=== PATIENT | male | born 1975 | race American Indian/Alaskan Native ===

== ENCOUNTER 2016-10-10 14:02 | Emergency (ER) | payer SELFPAY ==
[2016-10-10] MEDS ORDERED: Gabapentin 100 MG Cap ONE ×2 (14:45→14:46)
[2016-10-10] MEDS ORDERED: cloNIDine 0.1 MG Tab ONE (14:47)
[2016-10-10] MEDS ORDERED: cloNIDine 0.1 MG Tab PO ONE (14:52)
--- NOTE | 2016-10-10 14:52 | EDM.PDOC ---
ED HPI GENERAL MEDICAL PROBLEM - General Chief Complaint: General Stated Complaint: EAR PAIN Time Seen by Provider: 10/10/16 14:20 Source of Information: Reports: Patient History Limitations: Reports: No limitations - History of Present Illness INITIAL COMMENTS - FREE TEXT/NARRATIVE: According to patient he has been having pain in his right ear since May of 2016. He claims pain is constant and gets worse at time, most of the pain is behind the right ear and radiates into the right frontal and parietal region of the face and scalp. Hurts for him to comb his hair. No lesion and rash in the face or scalp. Pt claims that he has been to [place] emergency room twice. he was initially treated with amox for ear infection and then 5 days ago was started on clindamycin which he has been taking,pain is not better. no nausea or vomiting. No fever or chills. no hearing loss. No trauma to the ear. Improves with: Reports: None Worsens with: Reports: None Associated Symptoms: Denies: confusion, cough, fever/chills, headaches, nausea/ vomiting, rash, seizure, shortness of breath - Related Data Allergies Allergy/AdvReac Type Severity Reaction Status Date / Time No Known Allergies Allergy Verified 10/10/16 14:32 Home Meds: Home Meds Lisinopril/Hydrochlorothiazide [Lisinopril-Hctz 10-12.5 mg Tab] 1 each PO DAILY 10/10/16 [History] Pantoprazole [Protonix] 40 mg PO ACBREAKFAST 10/10/16 [History] Social & Family History - Tobacco Use Smoking Status *Q: Current Some Day Smoker Years of Tobacco use: 20 Used Tobacco, but Quit: No Second Hand Smoke Exposure: Yes - Alcohol Use Days Per Week of Alcohol Use: 1 Number of Drinks Per Day: 12 Total Drinks Per Week: 12 - Recreational Drug Use Recreational Drug Use: No ED ROS GENERAL - Review of Systems Review Of Systems: See Below Constitutional: Denies: fever, chills, night sweats, diaphoresis HEENT: Denies: Rhinitis, Sinus problem, Throat swelling Respiratory: Denies: Shortness of Breath, Cough, Sputum, Hemoptysis Cardiovascular: Denies: Chest pain, Lightheadedness GI/Abdominal: Denies: Abdominal pain, Nausea, Vomiting : Denies: dysuria, flank pain, incontinence, urgency Musculoskeletal: Denies: neck pain, shoulder pain, joint pain, joint swelling Skin: Denies: pruritis, rash Neurological: Denies: Confusion, Dizziness, Headache, Numbness, Paresthesia, Seizure, Syncope, Tingling, Trouble Speaking, Difficulty Walking, Change in Speech, Gait Disturbance ED EXAM, GENERAL - Physical Exam Exam: See Below Exam Limited By: No limitations General Appearance: alert, WD/WN, mild distress Eye Exam: bilateral eye: EOMI, PERRL Ears: normal external exam, normal canal, hearing grossly normal, normal TMs Ear Exam: bilateral ear: auricle normal, canal normal, TM normal Nose: normal inspection, normal mucosa, no blood Throat/Mouth: Normal inspection, Normal lips, Normal teeth, Normal gums, Normal oropharynx, Normal voice, No airway compromise Head: atraumatic, normocephalic, other (sensitive to touch in the post auricular region and over the right frontal parietal region to touch.) Neck: normal inspection, supple, non-tender, full range of motion Respiratory/Chest: no respiratory distress, lungs clear, normal breath sounds, no accessory muscle use, chest non-tender Cardiovascular: normal peripheral pulses, regular rate, rhythm, no edema, no gallop, no JVD, no murmur, no rub Extremities: normal inspection, normal range of motion, non-tender, normal capillary refill, no pedal edema Neurological: alert, oriented, CN II-XII intact, normal cognition, normal gait, normal reflexes, other (paresthesia in the rigth frontal parietal region) Course - Vital Signs Text/Narrative:: Pt reassured that his ear exam is normal. He has been ahving pain in the left side of the head involving the ear region since May of 2016. He is sensitive to touch in the area. he cannot comb his hair in the same region. This does appear like trigeminal neuralgia. I have started patient on Gabapentin 100mg 3 times daily. also side effects have been discussed with patient including dizziness. Will have MRI of the brain scheduled for further workup. Education on trigeminal neuralgia given to patient. also patient claims that he has not taken his BP meds today. he takes lisinopril and HCTZ. As his systolic is 180mmhg, he did receive clonidine 0.1mg in the emergency room and his BP improved. Departure - Departure Time of Disposition: 14:50 Disposition: Home, Self-Care 01 Condition: fair Clinical Impression: Trigeminal neuralgia of right side of face Instructions: Trigeminal Neuralgia Referrals: PCP,None [Primary Care Provider] - Forms: ED Department Discharge - Problem List & Annotations (1) Trigeminal neuralgia of right side of face SNOMED Code(s): 69678764 Code(s): G50.0 - TRIGEMINAL NEURALGIA Status: Acute Current Visit: Yes - Problem List Review Problem List Initiated/Reviewed/Updated: Yes - Assessment/Plan Assessment:: Right trigeminal neuralgia Plan: Pt reassured that his ear exam is normal. He has been ahving pain in the left side of the head involving the ear region since May of 2016. He is sensitive to touch in the area. he cannot comb his hair in the same region. This does appear like trigeminal neuralgia. I have started patient on Gabapentin 100mg 3 times daily. also side effects have been discussed with patient including dizziness. Will have MRI of the brain scheduled for further workup. Education on trigeminal neuralgia given to patient. also patient claims that he has not taken his BP meds today. he takes lisinopril and HCTZ. As his systolic is 180mmhg, he did receive clonidine 0.1mg in the emergency room and his BP improved.
[2016-10-10 15:29] VITALS: BP 144/98
== END 2016-10-10 15:00 | disposition home or self-care (01) ==
LOC: LB.ED 14:02
DX: G50.0 Trigeminal neuralgia (principal)
CPT/HCPCS: 99282; 99283; A9270

== ENCOUNTER 2017-05-04 07:25 | Emergency (ER) | payer SELFPAY ==
[2017-05-04 07:38] VITALS: BP 134/95
[2017-05-04] MEDS ORDERED: Ketorolac 30 MG/ML SDV IM ONE (08:13)
[2017-05-04] MEDS ORDERED: Gabapentin 300 MG Cap PO ONE (08:18)
[2017-05-04] MEDS ORDERED: Ketorolac 30 MG/ML SDV ONE (08:19)
--- NOTE | 2017-05-04 11:07 | EDM.PDOC ---
ED HPI GENERAL MEDICAL PROBLEM - General Chief Complaint: General Stated Complaint: dizziness Time Seen by Provider: 05/04/17 08:05 Source of Information: Reports: Patient History Limitations: Reports: No Limitations - History of Present Illness INITIAL COMMENTS - FREE TEXT/NARRATIVE: Pt is here in the emergency room for his headache. He claims that he has had this headache for past 2 days. His description is severe sharp headache ache over the right side of the face and scalp all the way to the vertex. Comes and goes. He gets atleast one episodes every week and is asso with tearing of the right eye. Gets right ear pain too, but does not have ringing in the ears or tinnitus. Onset Date: 05/02/17 Location: Reports: Head Quality: Reports: Ache Severity: Moderate Improves with: Reports: None Worsens with: Reports: None Associated Symptoms: Reports: Headaches. Denies: Chest Pain, Cough, Fever/ Chills, Nausea/Vomiting, Rash, Seizure, Shortness of Breath, Syncope, Weakness right ear and headache Pain Score (Numeric/FACES): 6 - Related Data Allergies Allergy/AdvReac Type Severity Reaction Status Date / Time No Known Allergies Allergy Verified 05/04/17 07:38 Home Meds: Home Meds Lisinopril/Hydrochlorothiazide [Lisinopril-Hctz 10-12.5 mg Tab] 1 each PO DAILY 10/10/16 [History] Pantoprazole [Protonix] 40 mg PO ACBREAKFAST 10/10/16 [History] oxyCODONE 5 mg PO BID 05/04/17 [History] Past Medical History Cardiovascular History: Reports: Hypertension Gastrointestinal History: Reports: GERD, Other (See Below) Other Gastrointestinal History: ulcers Social & Family History - Tobacco Use Smoking Status *Q: Current Some Day Smoker Years of Tobacco use: 20 Used Tobacco, but Quit: No Second Hand Smoke Exposure: Yes - Alcohol Use Days Per Week of Alcohol Use: 1 Number of Drinks Per Day: 12 Total Drinks Per Week: 12 - Recreational Drug Use Recreational Drug Use: No ED ROS GENERAL - Review of Systems Review Of Systems: See Below Constitutional: Denies: Fever, Chills HEENT: Reports: Ear Pain (right), Other (right eye tearing). Denies: Eye Pain, Throat Pain, Throat Swelling, Vision Change Respiratory: Denies: Shortness of Breath, Cough, Sputum Cardiovascular: Denies: Chest Pain, Edema, Lightheadedness GI/Abdominal: Denies: Abdominal Pain, Nausea, Vomiting Neurological: Denies: Confusion, Dizziness, Numbness, Paresthesia, Syncope, Tingling, Trouble Speaking, Difficulty Walking ED EXAM, GENERAL - Physical Exam Exam: See Below Exam Limited By: No Limitations General Appearance: Alert, WD/WN, No Apparent Distress Ears: Normal External Exam, Normal Canal, Hearing Grossly Normal, Normal TMs Ear Exam: Bilateral Ear: Auricle Normal, Canal Normal, TM normal Nose: Normal Inspection, Normal Mucosa, No Blood Throat/Mouth: Normal Inspection, Normal Lips, Normal Teeth, Normal Gums, Normal Oropharynx, Normal Voice, No Airway Compromise Head: Atraumatic, Normocephalic Neck: Normal Inspection, Supple, Non-Tender, Full Range of Motion Respiratory/Chest: No Respiratory Distress Cardiovascular: Normal Peripheral Pulses, Regular Rate, Rhythm, No Edema, No Gallop, No JVD, No Murmur, No Rub Neurological: Alert, Oriented, CN II-XII Intact, Normal Cognition, Normal Gait, Normal Reflexes, No Motor/Sensory Deficits Psychiatric: Normal Affect, Normal Mood Skin Exam: Warm, Intact Course - Vital Signs Text/Narrative:: Pt does appear to have right sided trigeminal neuralgia symptoms or could be cluster headache type pain, he was seen for the same reason few months ago. Advised MRI of the brain and started on gabapentin. Pt stopped gabapentin after few days, and has not got MRI of the brain done. I have reassured. His clinical exam is normal. HE did receive toradol 30mg IM, and gabapentn 300mg orally in the emergency room. Have advised him to take gabapentin 300mg at bedtime regularly. His CBC shows mild elevation of WBC today at 14.9, have empirically covered with amox for 10 days. Needs to see primary care in clinic and have appointment scheduled for neurology evaluation. Pt agrees and understand the plan. Last Recorded V/S: Last Vital Signs Temp 97.6 F 05/04/17 07:34 Pulse 93 05/04/17 07:34 Resp 16 05/04/17 07:34 BP 134/95 H 05/04/17 07:34 Pulse Ox 99 05/04/17 07:34 - Orders/Labs/Meds Labs: Laboratory Tests 05/04/17 Range/Units 07:55 WBC 14.9 H (4.0-11.0) K/uL RBC 4.92 (4.50-6.50) M/uL Hgb 15.0 (13.0-18.0) g/dL Hct 44.7 (40.0-54.0) % MCV 91 (76-96) fL MCH 30.5 (27.0-32.0) pg MCHC 33.6 (31.0-35.0) g/dL RDW 13.5 (11.0-16.0) % Plt Count 295 (150-400) K/uL MPV 8.5 (6.0-10.0) fL Neut % (Auto) 72.8 H (45.0-70.0) % Lymph % (Auto) 17.1 L (20.0-40.0) % [place] % (Auto) 6.6 (3.0-10.0) % Eos % (Auto) 3.3 (1.0-5.0) % Baso % (Auto) 0.2 (0.0-0.5) % Neut # (Auto) 10.84 H (2.00-7.50) K/uL Lymph # (Auto) 2.55 (1.50-4.00) K/uL [place] # (Auto) 0.99 H (0.20-0.80) K/uL Eos # (Auto) 0.49 H (0.04-0.40) K/uL Baso # (Auto) 0.03 (0.02-0.10) K/uL Meds: Medications Discontinued Medications Generic Name Dose Route Start Last Admin Trade Name Anibal PRN Reason Stop Dose Admin Gabapentin 300 mg 05/04/17 08:18 05/04/17 08:20 Neurontin PO 05/04/17 08:19 300 mg ONETIME ONE Administration Ketorolac Tromethamine 30 mg 05/04/17 08:13 05/04/17 08:20 Toradol IM 05/04/17 08:14 30 mg ONETIME ONE Administration Ketorolac Tromethamine Confirm 05/04/17 08:19 Toradol Administered 05/04/17 08:20 Dose 30 mg .ROUTE .STK-MED ONE Departure - Departure Time of Disposition: 09:00 Disposition: Home, Self-Care 01 Condition: Fair Clinical Impression: Trigeminal neuralgia of right side of face - Discharge Information Instructions: Trigeminal Neuralgia Referrals: PCP,Unknown [Ordering Only Provider] - Forms: ED Department Discharge Additional Instructions: Gabapentin every night, you need to try this for the next month to see any improvements, then you need to follow up in the clinic to get a referral.. Your are also given an antibiotic for the next 10 days. - Problem List & Annotations (1) Trigeminal neuralgia of right side of face SNOMED Code(s): 67801640 Code(s): G50.0 - TRIGEMINAL NEURALGIA Status: Acute - Problem List Review Problem List Initiated/Reviewed/Updated: Yes - Assessment/Plan Assessment:: right sided trigeminal neuralgia Plan: Pt does appear to have right sided trigeminal neuralgia symptoms or could be cluster headache type pain, he was seen for the same reason few months ago. Advised MRI of the brain and started on gabapentin. Pt stopped gabapentin after few days, and has not got MRI of the brain done. I have reassured. His clinical exam is normal. HE did receive toradol 30mg IM, and gabapentn 300mg orally in the emergency room. Have advised him to take gabapentin 300mg at bedtime regularly. His CBC shows mild elevation of WBC today at 14.9, have empirically covered with amox for 10 days. Needs to see primary care in clinic and have appointment scheduled for neurology evaluation. Pt agrees and understand the plan.
== END 2017-05-04 08:25 | disposition home or self-care (01) ==
LOC: LB.ED 07:25
DX: G50.0 Trigeminal neuralgia (principal); I10 Essential (primary) hypertension; F17.200 Nicotine dependence, unspecified, uncomplicated
CPT/HCPCS: 36415; 85025; 96372; 99284; A9270; J1885

== ENCOUNTER 2017-05-11 06:30 | Emergency (ER) | payer SELFPAY | END 2017-05-11 06:40 | disposition left against medical advice (07) | LOC: LB.ED 06:30 | DX: Z53.21 Procedure and treatment not carried out due to patient leaving prior to being seen by health care provider (principal) ==

== ENCOUNTER 2017-05-24 09:53 | Emergency (ER) | payer OTHER ==
[2017-05-24] MEDS ORDERED: Amoxicillin/Clavulanate K 875-125 MG Tab ONE (10:00)
[2017-05-24] MEDS ORDERED: Acetaminophen/HYDROcodone 325-5 MG Tab ONE (10:00)
[2017-05-24 11:38] VITALS: BP 135/83
[2017-05-24] MEDS ORDERED: Diphtheria,Pertussis(Acell),Tetanus Vaccine 0.5 ML SDV inactive IM ONE (12:00)
--- NOTE | 2017-05-25 07:08 | EDM.PDOC ---
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 Patient comes in to the ER with packing and the glove with the distal digit in the glove. This happened 15 min prior to arrival in the ER. Patient is not sure of his tetanus status and is otherwise in good health. Onset: Sudden Duration: Minutes: Location: Reports: Upper Extremity, Left Left 4-Ring finger Pain Score (Numeric/FACES): 7 - Related Data Allergies Allergy/AdvReac Type Severity Reaction Status Date / Time No Known Allergies Allergy Verified 05/04/17 07:38 Home Meds: Home Meds Lisinopril/Hydrochlorothiazide [Lisinopril-Hctz 10-12.5 mg Tab] 1 each PO DAILY 10/10/16 [History] Pantoprazole [Protonix] 40 mg PO ACBREAKFAST 10/10/16 [History] oxyCODONE 5 mg PO BID 05/04/17 [History] Past Medical History Cardiovascular History: Reports: Hypertension Other Cardiovascular History: has been on HTN meds but stopped taking meds states he has lost 40 pounds and hasn't had to take meds anymore Gastrointestinal History: Reports: GERD, Other (See Below) Other Gastrointestinal History: ulcers Social & Family History - Tobacco Use Smoking Status *Q: Current Some Day Smoker Years of Tobacco use: 20 Used Tobacco, but Quit: No Second Hand Smoke Exposure: Yes - Alcohol Use Days Per Week of Alcohol Use: 1 Number of Drinks Per Day: 12 Total Drinks Per Week: 12 - Recreational Drug Use Recreational Drug Use: No Review of Systems - Review of Systems Review Of Systems: ROS reveals no pertinent complaints other than HPI. ED EXAM, GENERAL - Physical Exam Exam: See Below Exam Limited By: No Limitations Respiratory/Chest: No Respiratory Distress Cardiovascular: Normal Peripheral Pulses, Regular Rate, Rhythm Extremities: Other (left 4th distal digit fingertip avulsion) ED TRAUMA PROCEDURES - Laceration/Wound Repair Left Distal Finger Appearance: Subcutaneous Distal NVT: Neuro & Vascular Intact, No Tendon Injury Anesthetic Type: Local Local Anesthesia - Lidocaine (Xylocaine): 1% Plain Local Anesthetic Volume: 5cc Skin Prep: Saline, Sterile Drape Exploration/Debridement/Repair: Wound Explored Closed With: Sutures Suture Size: 4-0 # of Sutures: 9 Suture Type: Interrupted, Simple Tetanus Status Addressed: Yes Complications: No Course - Vital Signs Last Recorded V/S: Last Vital Signs Temp 36.7 C 05/24/17 10:15 Pulse 74 05/24/17 10:15 Resp 16 05/24/17 10:15 BP 135/83 05/24/17 10:15 Pulse Ox 100 05/24/17 10:15 - Orders/Labs/Meds Orders: Active Orders 24 hr Category Date Time Status Vaccines to be Administered [RC] PER UNIT ROUTINE Care 05/24/17 12:00 Active Meds: Medications Discontinued Medications Generic Name Dose Route Start Last Admin Trade Name Freq PRN Reason Stop Dose Admin Diphtheria/Tetanus/Acell Pertussis 0.5 ml 05/24/17 12:00 05/24/17 11:10 Boostrix IM 05/24/17 12:01 0.5 ml .ONCE ONE Administration Departure - Departure Time of Disposition: 11:30 Disposition: Home, Self-Care 01 Condition: Undetermined Clinical Impression: Fingertip avulsion Qualifiers: Encounter type: initial encounter Qualified Code(s): S61.209A - Unspecified open wound of unspecified finger without damage to nail, initial encounter - Discharge Information Instructions: Traumatic Finger Amputation Referrals: PCP,None [Primary Care Provider] - Forms: ED Department Discharge Care Plan Goals: Return to clinic in 7 to 10 days for suture removal. Watch for signs of infection. Take pain medication as needed for pain. Take antibiotic as prescribed. Counseled on the nature of the wound and the likelihood of loss of the fingertip. Discussed possibility of infection and bone infection due to exposure of the distal tip of the fingertip bone. Counseled on infection close monitoring and f/u for suture removal and wound check and healing. Discussed proper care and keeping wound side dry and clean with dressing changes. Discussed f/u if any concerns or issues. - My Orders Last 24 Hours: My Active Orders 05/24/17 12:00 Vaccines to be Administered [RC] PER UNIT ROUTINE - Assessment/Plan Last 24 Hours: My Active Orders 05/24/17 12:00 Vaccines to be Administered [RC] PER UNIT ROUTINE
== END 2017-05-24 11:15 | disposition home or self-care (01) ==
LOC: LB.ED 09:53
DX: S61.205A Unspecified open wound of left ring finger without damage to nail, initial encounter (principal); Z23 Encounter for immunization; F17.210 Nicotine dependence, cigarettes, uncomplicated; W31.1XXA Contact with metalworking machines, initial encounter
CPT/HCPCS: 12002; 90471; 90715; 99283; A9270

== ENCOUNTER 2017-07-16 16:26 | Emergency (ER) | payer OTHER, MEDICAID ==
[2017-07-16] MEDS ORDERED: Acetaminophen/HYDROcodone 325-5 MG Tab ONE (16:30)
--- NOTE | 2017-07-16 17:01 | EDM.PDOC ---
ED HPI GENERAL MEDICAL PROBLEM - General Chief Complaint: General Stated Complaint: hand pain Time Seen by Provider: 07/16/17 16:45 Source of Information: Reports: Patient History Limitations: Reports: No Limitations - History of Present Illness INITIAL COMMENTS - FREE TEXT/NARRATIVE: This is a 42yo M here for left ring finger distal tip pain. The pain has been sharp 10/10 tenderness on touch and use. The symptoms have worsened recently. He has seen Dr. Mayer and has a f/u on Aug 11. Duration: Waxing/Waning Location: Reports: Upper Extremity, Left Quality: Reports: Ache, Stabbing Severity: Severe Improves with: Reports: Medication Worsens with: Reports: Movement - Related Data Allergies Allergy/AdvReac Type Severity Reaction Status Date / Time No Known Allergies Allergy Verified 05/04/17 07:38 Home Meds: Home Meds Lisinopril/Hydrochlorothiazide [Lisinopril-Hctz 10-12.5 mg Tab] 1 each PO DAILY 10/10/16 [History] Pantoprazole [Protonix] 40 mg PO ACBREAKFAST 10/10/16 [History] oxyCODONE 5 mg PO BID 05/04/17 [History] Past Medical History Cardiovascular History: Reports: Hypertension Other Cardiovascular History: has been on HTN meds but stopped taking meds states he has lost 40 pounds and hasn't had to take meds anymore Gastrointestinal History: Reports: GERD, Other (See Below) Other Gastrointestinal History: ulcers Other Musculoskeletal History: Bilateral shoulder pain Social & Family History - Tobacco Use Smoking Status *Q: Current Some Day Smoker Years of Tobacco use: 20 Used Tobacco, but Quit: No Second Hand Smoke Exposure: Yes - Alcohol Use Days Per Week of Alcohol Use: 1 Number of Drinks Per Day: 12 Total Drinks Per Week: 12 - Recreational Drug Use Recreational Drug Use: No ED ROS GENERAL - Review of Systems Review Of Systems: ROS reveals no pertinent complaints other than HPI. ED EXAM, GENERAL - Physical Exam Exam: See Below Exam Limited By: No Limitations General Appearance: Alert, WD/WN, Moderate Distress Respiratory/Chest: No Respiratory Distress Cardiovascular: Normal Peripheral Pulses Extremities: Other (left ring finger tip amputated area pain; no erythema, no discharge, no dehiscence. ) Psychiatric: Normal Affect, Normal Mood Departure - Departure Time of Disposition: 16:59 Disposition: Home, Self-Care 01 Condition: Good Clinical Impression: Pain Fingertip avulsion Qualifiers: Encounter type: initial encounter Qualified Code(s): S61.209A - Unspecified open wound of unspecified finger without damage to nail, initial encounter - Discharge Information Instructions: Living With an Amputation Forms: ED Department Discharge Additional Instructions: Take 1 tab of hydrocodone/apap 5/325 mg every 6 to 8 hours as needed for pain. Care Plan Goals: Counseled on close monitoring and f/u as needed if any changes to symptoms or persistence of symptoms.
[2017-07-16 18:30] VITALS: BP 113/72
== END 2017-07-16 16:55 | disposition home or self-care (01) ==
LOC: LB.ED 16:26
DX: S61.205A Unspecified open wound of left ring finger without damage to nail, initial encounter (principal); I10 Essential (primary) hypertension; F17.210 Nicotine dependence, cigarettes, uncomplicated; Z79.899 Other long term (current) drug therapy; X58.XXXA Exposure to other specified factors, initial encounter
CPT/HCPCS: 99283; A9270

== ENCOUNTER 2017-08-08 18:50 | Emergency (ER) | payer MEDICAID ==
[2017-08-08] MEDS ORDERED: Sulfamethoxazole/Trimethoprim 200-40 MG/5 ML Susp ML (473 ML Bottle) ONE (19:00)
[2017-08-08 19:12] VITALS: BP 136/84
--- NOTE | 2017-08-08 19:48 | EDM.PDOC ---
ED HPI GENERAL MEDICAL PROBLEM - General Chief Complaint: General Stated Complaint: COLD SYMPTOMS Time Seen by Provider: 08/08/17 19:15 Source of Information: Reports: Patient, RN History Limitations: Reports: No Limitations - History of Present Illness INITIAL COMMENTS - FREE TEXT/NARRATIVE: 42 yr male presents with right sided sinus pain, states sore inside nose and pain up to top of scalp with this. States he has a MRI scheduled for neuralgia work-up. States he started to get sick on the weekend and is worse today. States no allergies. He does have a bandage to finger of left hand and states he had a laceration and fingertip cut off. - Related Data Allergies Allergy/AdvReac Type Severity Reaction Status Date / Time No Known Allergies Allergy Verified 05/04/17 07:38 Home Meds: Home Meds Lisinopril/Hydrochlorothiazide [Lisinopril-Hctz 10-12.5 mg Tab] 1 each PO DAILY 10/10/16 [History] Pantoprazole [Protonix] 40 mg PO ACBREAKFAST 10/10/16 [History] oxyCODONE 5 mg PO BID 05/04/17 [History] Past Medical History Cardiovascular History: Reports: Hypertension Other Cardiovascular History: has been on HTN meds but stopped taking meds states he has lost 40 pounds and hasn't had to take meds anymore Gastrointestinal History: Reports: GERD, Other (See Below) Other Gastrointestinal History: ulcers Other Musculoskeletal History: Bilateral shoulder pain Social & Family History - Tobacco Use Smoking Status *Q: Current Every Day Smoker Years of Tobacco use: 20 Used Tobacco, but Quit: No Second Hand Smoke Exposure: Yes - Alcohol Use Days Per Week of Alcohol Use: 1 Number of Drinks Per Day: 12 Total Drinks Per Week: 12 - Recreational Drug Use Recreational Drug Use: No ED ROS GENERAL - Review of Systems Review Of Systems: See Below Constitutional: Reports: No Symptoms HEENT: Reports: Dental Pain, Nose Pain, Throat Pain, Other (sinus pain) Respiratory: Reports: Cough Cardiovascular: Reports: No Symptoms Endocrine: Reports: No Symptoms GI/Abdominal: Reports: No Symptoms Psychiatric: Reports: No Symptoms ED EXAM, GENERAL - Physical Exam Exam: See Below Exam Limited By: No Limitations General Appearance: Alert, No Apparent Distress Ears: Hearing Grossly Normal Nose: Normal Inspection, Normal Mucosa, Nasal Swelling Throat/Mouth: Normal Inspection, Normal Lips Head: Atraumatic, Normocephalic, Sinus Tenderness, Other (Maxillary sinus tenderness to the right side and frontal sinus tenderness) Neck: Normal Inspection, Supple, Non-Tender Respiratory/Chest: No Respiratory Distress, Lungs Clear, Normal Breath Sounds Cardiovascular: Regular Rate, Rhythm Psychiatric: Normal Affect, Normal Mood Skin Exam: Warm, Dry, Normal Color Lymphatic: Other (anterior cervical lymph adenopathy, states he had an U/S to his neck, lymph adenopathy) Course - Vital Signs Last Recorded V/S: Last Vital Signs Temp 99.8 F 08/08/17 19:33 Pulse 113 H 08/08/17 19:33 Resp 16 08/08/17 19:33 BP 136/84 08/08/17 19:33 Pulse Ox 100 08/08/17 19:33 Departure - Departure Time of Disposition: 19:25 Disposition: Home, Self-Care 01 Condition: Good Clinical Impression: Sinusitis - Discharge Information Instructions: Sinusitis, Adult, [id number] Referrals: PCP,None [Primary Care Provider] - Forms: ED Department Discharge Care Plan Goals: Take antibiotic as directed. May use vaseline in right nares to keep moist. May use a vaporizer at home if needed. Return to hospital or clinic with any other concerns or problems. - Problem List & Annotations (1) Sinusitis SNOMED Code(s): 67688525 Code(s): J32.9 - CHRONIC SINUSITIS, UNSPECIFIED Status: Acute - Problem List Review Problem List Initiated/Reviewed/Updated: Yes - Assessment/Plan Plan: RX for Bactrim DS 1 tab PO bid for 10 day. Recommend to take with full glass of water and food. May take Tylenol as needed for pain and temperature. Recommend Vicks Vapor inhalation a few times/day for relief of congestion and moisture to prevent nose bleeds. Mupirocin oint application to right nares, states sore inside nostril. RTC if symptoms persist or worsen.
== END 2017-08-08 19:25 | disposition home or self-care (01) ==
LOC: LB.ED 18:50
DX: J32.9 Chronic sinusitis, unspecified (principal); I10 Essential (primary) hypertension; F17.210 Nicotine dependence, cigarettes, uncomplicated
CPT/HCPCS: 99283; A9270

== ENCOUNTER 2017-08-13 17:05 | Emergency (ER) | payer MEDICAID ==
[2017-08-13] MEDS ORDERED: predniSONE 20 MG Tab ONE ×2 (17:29→19:20)
[2017-08-13 18:04] VITALS: BP 123/87
--- NOTE | 2017-08-13 19:00 | EDM.PDOC ---
ED HPI GENERAL MEDICAL PROBLEM - General Chief Complaint: Respiratory Problem Stated Complaint: NOSE STOPPED UP Time Seen by Provider: 08/13/17 17:15 Source of Information: Reports: Patient History Limitations: Reports: No Limitations - History of Present Illness INITIAL COMMENTS - FREE TEXT/NARRATIVE: Patient is a 42 year old man who has been seen in the ED and clinic this past week for nasal congestion. He has an antibiotic, flonase and he is steaming his nose but he is still having a hard time breathing. No other complaints. 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 Treatments - Related Data Allergies Allergy/AdvReac Type Severity Reaction Status Date / Time No Known Allergies Allergy Verified 05/04/17 07:38 Home Meds: Home Meds Lisinopril/Hydrochlorothiazide [Lisinopril-Hctz 10-12.5 mg Tab] 1 each PO DAILY 10/10/16 [History] Pantoprazole [Protonix] 40 mg PO ACBREAKFAST 10/10/16 [History] oxyCODONE 5 mg PO BID 05/04/17 [History] Past Medical History - Past Health History Medical/Surgical History: Denies Medical/Surgical History Cardiovascular History: Reports: Hypertension Other Cardiovascular History: has been on HTN meds but stopped taking meds states he has lost 40 pounds and hasn't had to take meds anymore Gastrointestinal History: Reports: GERD, Other (See Below) Other Gastrointestinal History: ulcers Other Musculoskeletal History: Bilateral shoulder pain Social & Family History - Tobacco Use Smoking Status *Q: Current Every Day Smoker Years of Tobacco use: 20 Packs/Tins Daily: 1 Used Tobacco, but Quit: No Second Hand Smoke Exposure: Yes - Caffeine Use Caffeine Use: Reports: None - Alcohol Use Days Per Week of Alcohol Use: 1 Number of Drinks Per Day: 12 Total Drinks Per Week: 12 - Recreational Drug Use Recreational Drug Use: No ED ROS GENERAL - Review of Systems Review Of Systems: ROS reveals no pertinent complaints other than HPI. ED EXAM, GENERAL - Physical Exam Exam: See Below Exam Limited By: No Limitations General Appearance: Alert, WD/WN, No Apparent Distress Eye Exam: Bilateral Eye: EOMI, Normal Fundi, Normal Inspection, PERRL Ears: Normal External Exam, Normal Canal, Hearing Grossly Normal, Normal TMs Nose: Nasal Deformity (And nasal obstruction with growths in both nostrils.) Throat/Mouth: Normal Inspection, Normal Lips, Normal Teeth, Normal Gums, Normal Oropharynx, Normal Voice, No Airway Compromise Head: Atraumatic, Normocephalic Neck: Normal Inspection, Supple, Non-Tender, Full Range of Motion Respiratory/Chest: No Respiratory Distress, Lungs Clear, Normal Breath Sounds, No Accessory Muscle Use, Chest Non-Tender Cardiovascular: Normal Peripheral Pulses, Regular Rate, Rhythm, No Edema, No Gallop, No JVD, No Murmur, No Rub GI/Abdominal: Normal Bowel Sounds, Soft, Non-Tender, No Organomegaly, No Distention, No Abnormal Bruit, No Mass Extremities: Normal Inspection, Normal Range of Motion, Non-Tender, Normal Capillary Refill, No Pedal Edema Neurological: Alert, Oriented, CN II-XII Intact, Normal Cognition, Normal Gait, Normal Reflexes, No Motor/Sensory Deficits Psychiatric: Normal Affect, Normal Mood Skin Exam: Warm, Dry, Intact, Normal Color, No Rash Course - Vital Signs Text/Narrative:: Uneventful ED course. Added Prednisone 40 mg po daily for 3 days. Continue with antibiotics and flonase along with steam. See Dr. Kline early next week to be set up for ENT appointment and possible polyps in the nose. Last Recorded V/S: Last Vital Signs Temp 36.6 C 08/13/17 17:10 Pulse 123 H 08/13/17 17:10 Resp 20 08/13/17 17:10 BP 123/87 08/13/17 17:10 Pulse Ox 100 08/13/17 17:10 - Orders/Labs/Meds Meds: Medications Discontinued Medications Generic Name Dose Route Start Last Admin Trade Name Anibal PRN Reason Stop Dose Admin Prednisone Confirm 08/13/17 17:29 Prednisone Administered 08/13/17 17:30 Dose 120 mg .ROUTE .STK-MED ONE Departure - Departure Time of Disposition: 19:02 Disposition: Home, Self-Care 01 Condition: Good Clinical Impression: Obstruction of nose - Discharge Information Instructions: Prednisone tablets Referrals: PCP,None [Primary Care Provider] - Forms: ED Department Discharge Care Plan Goals: Take 2 tablets of prednisone x 3 days. See your primary care provider for a referral to an Eyes Ears Nose and Throat specialist as you have polyps.
== END 2017-08-13 17:30 | disposition home or self-care (01) ==
LOC: LB.ED 17:05
DX: J34.89 Other specified disorders of nose and nasal sinuses (principal); I10 Essential (primary) hypertension; K21.9 Gastro-esophageal reflux disease without esophagitis; F17.210 Nicotine dependence, cigarettes, uncomplicated; Z79.899 Other long term (current) drug therapy
CPT/HCPCS: 99283; A9270

== ENCOUNTER 2017-08-29 17:52 | Emergency (ER) | payer MEDICAID ==
[2017-08-29] MEDS ORDERED: Acetaminophen/HYDROcodone 325-5 MG Tab ONE (18:00)
[2017-08-29 18:26] VITALS: BP 155/101
--- NOTE | 2017-08-29 21:10 | EDM.PDOC ---
ED HPI GENERAL MEDICAL PROBLEM - General Chief Complaint: General Stated Complaint: general Time Seen by Provider: 08/29/17 17:52 Source of Information: Reports: Patient History Limitations: Reports: No Limitations - History of Present Illness INITIAL COMMENTS - FREE TEXT/NARRATIVE: This is a 42yo M with nasal congestion, recent diagnosis of nasal turbinate hypertrophy and discomfort. He comes in for the same condition and would like to see if he can see ENT sooner. Onset: Gradual Duration: Week(s):, Constant Location: Reports: Other (nose) Quality: Reports: Ache Severity: Moderate Improves with: Reports: None Worsens with: Reports: None - Related Data Allergies Allergy/AdvReac Type Severity Reaction Status Date / Time No Known Allergies Allergy Verified 08/29/17 18:12 Home Meds: Home Meds Lisinopril/Hydrochlorothiazide [Lisinopril-Hctz 10-12.5 mg Tab] 1 each PO DAILY 10/10/16 [History] Pantoprazole [Protonix] 40 mg PO ACBREAKFAST 10/10/16 [History] oxyCODONE 5 mg PO BID 05/04/17 [History] Past Medical History - Past Health History Medical/Surgical History: Denies Medical/Surgical History Cardiovascular History: Reports: Hypertension Other Cardiovascular History: has been on HTN meds but stopped taking meds states he has lost 40 pounds and hasn't had to take meds anymore Gastrointestinal History: Reports: GERD, Other (See Below) Other Gastrointestinal History: ulcers Other Musculoskeletal History: Bilateral shoulder pain - Past Surgical History Musculoskeletal Surgical History: Reports: Amputation, Other (See Below) Other Musculoskeletal Surgeries/Procedures:: Left ring finger at DIP. Social & Family History - Tobacco Use Smoking Status *Q: Current Every Day Smoker Years of Tobacco use: 20 Packs/Tins Daily: 1 Used Tobacco, but Quit: No Second Hand Smoke Exposure: Yes - Caffeine Use Caffeine Use: Reports: None - Alcohol Use Days Per Week of Alcohol Use: 1 Number of Drinks Per Day: 12 Total Drinks Per Week: 12 - Recreational Drug Use Recreational Drug Use: No ED ROS GENERAL - Review of Systems Review Of Systems: ROS reveals no pertinent complaints other than HPI. ED EXAM, GENERAL - Physical Exam Exam: See Below Exam Limited By: No Limitations General Appearance: Alert, WD/WN, Mild Distress Eye Exam: Bilateral Eye: EOMI, PERRL Ears: Normal External Exam Nose: Nasal Tenderness, Nasal Swelling Throat/Mouth: Normal Inspection, Normal Oropharynx Head: Atraumatic, Normocephalic Neck: Normal Inspection, Supple, Non-Tender Respiratory/Chest: No Respiratory Distress, Lungs Clear, Normal Breath Sounds Cardiovascular: Normal Peripheral Pulses, Regular Rate, Rhythm Peripheral Pulses: 2+: Dorsalis Pedis (L), Dorsalis Pedis (R) GI/Abdominal: Normal Bowel Sounds Back Exam: Normal Inspection Extremities: Normal Inspection Neurological: Alert, Oriented, CN II-XII Intact Psychiatric: Normal Affect, Normal Mood Skin Exam: Warm, Dry, Intact Course - Vital Signs Last Recorded V/S: Last Vital Signs Temp 36.6 C 08/29/17 18:25 Pulse 72 08/29/17 18:25 Resp 20 08/29/17 18:25 BP 155/101 H 08/29/17 18:25 Pulse Ox 99 08/29/17 18:25 Departure - Departure Time of Disposition: 18:30 Disposition: Home, Self-Care 01 Condition: Good Clinical Impression: Nasal turbinate hypertrophy - Discharge Information Referrals: PCP,None [Primary Care Provider] - Forms: ED Department Discharge - Problem List Review Problem List Initiated/Reviewed/Updated: Yes - Assessment/Plan Plan: Patient counseled on current management. Discussed supportive care and management. Patient has an appointment with ENT but it is on September 26. Patient is on waiting list as well. Patient to f/u in clinic on for recheck and management as needed. F/u as directed and if symptoms worsen.
== END 2017-08-29 18:05 | disposition home or self-care (01) ==
LOC: LB.ED 17:52
DX: J34.3 Hypertrophy of nasal turbinates (principal); I10 Essential (primary) hypertension; Z79.899 Other long term (current) drug therapy; F17.210 Nicotine dependence, cigarettes, uncomplicated
CPT/HCPCS: 99282; 99283; A9270

== ENCOUNTER 2018-01-23 00:35 | Emergency (ER) | payer MEDICAID | END 2018-01-23 00:54 | disposition home or self-care (01) | LOC: LB.ED 00:35 | DX: J30.9 Allergic rhinitis, unspecified (principal); R09.81 Nasal congestion | CPT/HCPCS: 99283 ==

== ENCOUNTER 2018-11-10 21:25 | Emergency (ER) | payer MEDICAID ==
[~2018-11-10 21:25] MED LIST: Metoprolol Tartrate 5 MG/5 ML SDV IVPUSH PRN; Metoprolol Tartrate 5 MG/5 ML SDV ONE
[2018-11-10] MEDS: Morphine 2 MG/ML Syringe IVPUSH PRN ×3 (21:46→23:18)
[2018-11-10] MEDS ORDERED: Nitroglycerin 0.4 MG Tab.SL SL PRN (23:40)
[2018-11-10 23:48] VITALS: BP 155/102
[2018-11-11] MEDS ORDERED: Clopidogrel 75 MG Tab PO ONE (00:07)
[2018-11-11] MEDS ORDERED: Heparin Sodium 5,000 UNITS/0.5 ML Syringe IVPUSH ONE (00:08)
[2018-11-11] MEDS ORDERED: Heparin Sodium/D5W 25,000 UNITS/500 ML BAG IV SCH (00:15)
[2018-11-11] MEDS ORDERED: Nitroglycerin/D5W 25 MG/250 ML BOTTLE IV SCH (00:15)
--- NOTE | 2018-11-13 08:38 | CR ---
Date of Service: 11/10/18 Clinical Data: Chest pain. PA CHEST: The heart size is normal. The lungs are clear. No pneumothorax. No pleural effusions. No evidence of acute intrathoracic disease. [id number] [facility]
--- NOTE | 2018-11-13 08:41 | CT ---
Date of Service: 11/10/18 Clinical Data: Chest pain. ENHANCED CHEST CT: Multislice acquisition through the chest with IV contrast was performed. No priors. There are minimal atelectatic changes in the dependent portion of both lungs. The lungs otherwise clear. No pneumothorax. No pleural effusions. No evidence of PE. No aortic aneurysm or dissection. No hilar or mediastinal adenopathy. The heart size is normal. No coronary artery calcification. No significant pericardial effusion. There is a small hiatal hernia. [id number] [facility]
--- NOTE | 2018-11-13 09:15 | ER ---
DATE OF SERVICE: 11/10/2018 HISTORY: The patient is a 43-year-old [place] male presented to the ER with severe substernal chest pain radiating up into his jaw. The patient did not have shortness of breath. He did, however, have nausea and vomiting. He was not noted to have a fever. On presentation to the ER, he was writhing on the stretcher. His initial blood pressure in the ambulance was 197/131, pulse was 97, respirations 20, and O2 saturation was 98% on room air. The patient had an EKG obtained. The EKG had a wandering baseline, as the patient was having a hard time holding still, but initially it looked like he had some ST depression in the anterior leads of V1 through V3, more on V2 and V3, possibly onto V4 also. However, it was not a good EKG. He did not have any ST-segment elevation. His next blood pressure was better at 150/100 and something. He continued to have chest pain, got some morphine. We also gave him a nitroglycerin. The patient's pain persisted. The nitroglycerin really had no effect, dropped his blood pressure minimally briefly. He did take 3 aspirin on his own prior to arriving in the emergency room. The pain had been going on for about 3 hours. It did not radiate into the arm. He does not have a coronary artery disease history. However, he has a family history of diabetes and coronary artery disease, and his serum was noted to be lipemic by the lab. PHYSICAL EXAMINATION: GENERAL: He is alert, oriented, writhing around in severe pain. He ended up getting about 20 mg of morphine before his pain was under control. We repeated his EKG, which showed normal sinus rhythm with some nonspecific ST abnormalities. HEENT: Unremarkable. NECK: Supple. No nodes. No bruits. LUNGS: Clear. HEART: Regular, sinus rhythm. ABDOMEN: Benign. EXTREMITIES: No clubbing, cyanosis, or edema. He did have somewhat decreased peripheral pulses, however. He did have good capillary refill. Further on in the course, the patient still was having a hard time getting his pain under control despite the morphine, etc. We did give him some Lopressor, but that really did not do much to his blood pressure, ended up obtaining a CT scan. My concern was that the patient could have an aortic dissection. That was ruled out with the contrast CT. I did contact Cardiology prior to doing this and giving him a dye load. We did obtain it, it was negative. I contacted Cardiology again, who agreed to accept the patient. At that time, he was started on nitroglycerin drip at 5 mcg. We also gave him a 5000 unit heparin bolus and put him on heparin at 1000 an hour and gave him 300 mg of Plavix p.o. Dr. Flynn agreed to accept the patient, along with Dr. Rodriguez. The patient was transported by ground ambulance. He did have a white count of 20,000. Also, his hemoglobin and hematocrit were good. Comprehensive metabolic panel was pretty much normal. He did have a mildly elevated glucose of 133. He had an elevated troponin of 0.062 with the upper limit of normal being 0.06 and he had a negative D-dimer at less than 100. MONSE/BERNY /[id number] ACACIA
== END 2018-11-11 01:30 ==
LOC: MERGE 21:25 → LB.ED 21:25
DX: I20.0 Unstable angina (principal)
CPT/HCPCS: 36415; 71045; 71260; 80053; 84484; 85025; 85379; 93005; 96365; 96375; 99285-25; A0425; A0429; A9270-GY; J1644; J1644-GY; J2270; J3490

== ENCOUNTER 2019-05-29 20:12 | Observation (INO) | payer MEDICAID ==
[2019-05-29] MEDS ORDERED: Morphine 2 MG/ML Syringe IVPUSH ONE (20:33)
[2019-05-29] MEDS ORDERED: Ondansetron 4 MG/2 ML SDV IVPUSH ONE (20:33)
[2019-05-29] MEDS ORDERED: HYDROmorphone 2 MG/ML Syringe IVPUSH ONE (20:48)
[2019-05-29] MEDS ORDERED: GI Cocktail Oral Solution 30 ML PO ONE (21:01)
[2019-05-29] MEDS ORDERED: Ondansetron 4 MG/2 ML SDV IVPUSH PRN (22:02)
[2019-05-29] MEDS ORDERED: Gabapentin 600 MG Tab PO SCH (22:15)
[2019-05-29] MEDS ORDERED: GABAPENTIN PO SCH (22:15)
[2019-05-29] MEDS: Sodium Chloride 0.9% 1,000 ML IV SCH (22:15)
--- NOTE | 2019-05-29 22:37 | ER ---
HISTORY OF PRESENT ILLNESS: A 43-year-old male who comes to the ER with complaints of chest pain. He states that it just started an hour before arrival. It comes and goes. He has vomited 4 times before arriving at the ER. The patient states it seems to start in the upper part of the abdomen. He is pointing to the upper left quadrant, and it radiates across the lower chest wall to the right side. The patient has not been running a fever. He states he ate supper a couple of hours before the symptoms developed. He has not been sick lately. The patient denies any problems with diarrhea or shortness of breath. PAST MEDICAL HISTORY: Includes an TX in October which required 2 stents. OBJECTIVE: GENERAL APPEARANCE: The patient is awake and alert. He is uncomfortable. No respiratory distress. He prefers to sit up or stand. Lying down is uncomfortable for him. VITAL SIGNS: Reviewed. Blood pressure 106/72, he is afebrile, O2 sats 100%, respirations 16, pulse 101. HEENT: On physical exam; oral mucous membranes are dry. LUNGS: Clear. There is no CVA tenderness with percussion. CARDIAC: Heart sounds distinct without murmurs. ABDOMEN: There is some discomfort in the upper left quadrant with light palpation. Bowel sounds are hypoactive. SKIN: Warm and dry. INITIAL TREATMENT PLAN: Morphine was given 2 mg IV followed by Zofran 4 mg IV. The patient vomited twice while in the ER and the nausea seemed to resolve. The morphine did not do much for pain control. This was followed by 1 mg of Dilaudid, which did control the patient's pain fairly well. He reports just a dull ache in the affected area at this time. He was then given a GI cocktail. LABS: Done in the ER [place] [address]. Comprehensive metabolic panel shows a potassium of 3.4, calcium 8.4. Troponin level is negative or normal. An EKG shows a normal sinus rhythm. Chest x-ray was done, which is negative. At this point, CTs of the chest and abdomen were obtained showing an ileus with no hardy obstruction. This does fit with the patient's clinical picture. DIAGNOSIS: Ileus. TREATMENT PLAN: The patient will be admitted to the hospital on observation. Bowel rest, IV fluids, Zofran, and possibly a nasogastric tube. He will be reassessed in the morning. CRS/MODL /[id number]
--- NOTE | 2019-05-29 22:46 | ADMIT ---
HISTORY: This is a 43-year-old male who came into the emergency room with epigastric pain that radiated up across the anterior chest wall. It seemed to start in the upper left quadrant of the abdomen and radiate up into the right side of the chest wall. It seemed to be coming in spasms when he arrived at the emergency room and lying down was very uncomfortable for him. Sitting up or standing seem to be more comfortable. The patient stated that it has started about an hour before arrival. He had vomited 4 times before getting here. The patient rates his pain as severe when arriving. PAST MEDICAL HISTORY: Includes an VT in October which required 2 stents. He has history of: 1. Trigeminal neuralgia. 2. Contact dermatitis. 3. Chronic pain, mostly due to a partially amputated finger. OBJECTIVE: GENERAL APPEARANCE: The patient is awake and alert. He is uncomfortable. No respiratory distress. VITAL SIGNS: Reviewed. He is afebrile, pulse is 101, blood pressure 106/72, O2 sats are 100%. ABDOMEN: On physical exam, the patient has tenderness involving the left upper quadrant with light palpation. Bowel sounds are hypoactive. SKIN: Warm and dry. CARDIAC: Heart sounds distinct without murmurs. LUNGS: Clear. HEENT: Oral mucous membranes are slightly dry. INITIAL TREATMENT PLAN: After reviewing the patient's medications, he is on Plavix and takes aspirin. He also took 3 nitroglycerin before coming in tonight and stated that it helped a little bit. He is also on lisinopril hydrochlorothiazide, Coreg and Protonix as well as Lipitor. Initial treatment and IV were started. The patient was given 2 mg of morphine. This was followed with Zofran 4 mg. The patient vomited a couple of times here in the emergency room. He did not get much relief from the morphine. We then gave the patient Dilaudid 1 mg IV. This seemed to settle him down considerably. LAB WORK: In[place] [address], neutrophils are normal. Comprehensive metabolic panel shows a potassium of 3.4, glucose 140. Troponin is normal. Chest x-ray is unremarkable as well. The patient was becoming more comfortable, but stated it still hurt, but it was more of an ache at this point in the emergency room, and a GI cocktail was given. This was followed with a CT of the chest and abdomen, which revealed an ileus with no obvious obstruction which warranted admission for the patient. He will be admitted for bowel rest. He will be given IV fluids, Zofran regularly through the night. A nasogastric tube may be needed but he has not been vomiting now for the last hour or so. We will see how that goes, and we will re-evaluate the patient in the morning. BAM/MODL /[id number]
[2019-05-30] MEDS ORDERED: Ketorolac 30 MG/ML SDV IVPUSH SCH (00:30)
[2019-05-30] MEDS: Sodium Chloride 0.9% 1,000 ML IV SCH (05:42)
[2019-05-30] MEDS ORDERED: Ketorolac 30 MG/ML SDV IVPUSH PRN (06:00)
[2019-05-30] MEDS ORDERED: Non-Formulary Medication 1 Each (Pantoprazole [Protonix***] 40 MG) PO SCH (07:00)
[2019-05-30] MEDS ORDERED: Pantoprazole 40 MG Tab.CR PO SCH (07:00)
[2019-05-30] MEDS ORDERED: CARVEDILOL PO SCH (08:00)
[2019-05-30] MEDS ORDERED: Lisinopril 10 MG Tab PO SCH (08:00)
[2019-05-30] MEDS ORDERED: Hydrochlorothiazide 12.5 MG Cap PO SCH (08:00)
[2019-05-30] MEDS ORDERED: Gabapentin 300 MG Cap PO SCH (08:00)
[2019-05-30] MEDS ORDERED: Carvedilol 3.125 MG Tab PO SCH (08:00)
[2019-05-30] MEDS ORDERED: Clopidogrel 75 MG Tab PO SCH (08:00)
[2019-05-30] MEDS ORDERED: Aspirin 81 MG Tab.EC PO SCH (08:00)
[2019-05-30] MEDS ORDERED: ASPIRIN PO SCH (08:00)
[2019-05-30 08:12] VITALS: BP 107/61; PULSE 64
--- NOTE | 2019-05-30 09:01 | CR ---
Date of Service: 05/29/19 Clinical Data: chest pain AP PORTABLE CHEST: Comparison is made to a prior exam dated 11/10/18. The heart size is normal. The lungs are clear. No pneumothorax. No pleural effusions. No evidence of acute intrathoracic disease. [id number] [facility]
--- NOTE | 2019-05-30 09:11 | CT ---
DATE OF SERVICE: 05/29/19 CLINICAL DATA: lower anterior chest pain. UNENHANCED CHEST CT: Multislice acquisition through the chest without IV contrast was performed. Comparison is made to a prior unenhanced chest CT dated October 2018. The lungs are clear. No pneumothorax. No pleural effusions. The heart size is normal. There are mild coronary artery calcifications. No significant pericardial effusion. No hilar or mediastinal adenopathy. The exam is otherwise unremarkable. IMPRESSION: No acute abnormalities. Other findings as discussed above. [id number] [facility]
--- NOTE | 2019-05-30 09:12 | PCM.DCSUM1 ---
Discharge Summary - Discharge Data Discharge Date: 05/30/19 Discharge Disposition: Home, Self-Care 01 Condition: Good - Referral to Home Health Primary Care Physician: Sebas Peterson PA-C - Patient Instructions Diet: Usual Diet as Tolerated Activity: As Tolerated, Rest and Relax Today Driving: May Drive Today - Discharge Plan Home Medications: Home Meds Lisinopril/Hydrochlorothiazide [Lisinopril-Hctz 10-12.5 mg Tab] 1 each PO DAILY 10/10/16 [History] Pantoprazole [Protonix] 40 mg PO ACBREAKFAST 10/10/16 [History] Aspirin 1 tab PO DAILY 05/29/19 [History] Carvedilol 1 tab PO BID 05/29/19 [History] Clopidogrel Bisulfate [Clopidogrel] 1 tab PO DAILY 05/29/19 [History] Gabapentin [Neurontin] 1 cap PO ASDIRECTED 05/29/19 [History] atorvaSTATin Calcium [Atorvastatin Calcium] 1 tab PO BEDTIME 05/29/19 [History] Patient Handouts: Polyethylene Glycol powder Forms: ED Department Discharge Referrals: Sebas Peterson PA-C [Primary Care Provider] - - Discharge Summary/Plan Comment DC Time >30 min.: No Discharge Summary/Plan Comment: Patient BS good and just had a large bowel movement. Patient states he feels well and would like to go home. Counseled on continued stool softeners, fiber and diet. Patient to f/u in clinic within a week for recheck. Patient to follow up as directed if symptoms return. - General Info Date of Service: 05/30/19 Functional Status: Reports: Pain Controlled - Review of Systems General: Reports: No Symptoms HEENT: Reports: No Symptoms Pulmonary: Reports: No Symptoms Cardiovascular: Reports: No Symptoms Gastrointestinal: Reports: No Symptoms Genitourinary: Reports: No Symptoms Musculoskeletal: Reports: No Symptoms Skin: Reports: No Symptoms Neurological: Reports: No Symptoms Psychiatric: Reports: No Symptoms - Patient Data Vitals - Most Recent: Last Vital Signs Temp 37.4 C 05/30/19 08:00 Pulse 64 05/30/19 08:11 Resp 18 05/30/19 08:00 BP 107/61 05/30/19 08:12 Pulse Ox 98 05/30/19 04:00 Weight - Most Recent: 99.79 kg I&O - Last 24 hours: Intake & Output 11/05/19 11/06/19 11/06/19 22:59 06:59 14:59 Intake Total 965 Balance 965 Lab Results - Last 24 hrs: Laboratory Results - last 24 hr 05/29/19 05/29/19 05/29/19 Range/Units 20:32 20:32 20:33 WBC 18.7 H D (4.0-11.0) K/uL RBC 5.21 (4.50-6.50) M/uL Hgb 15.7 (13.0-18.0) g/dL Hct 45.0 (40.0-54.0) % MCV 86 (76-96) fL MCH 30.1 (27.0-32.0) pg MCHC 34.9 (31.0-35.0) g/dL RDW 13.6 (11.0-16.0) % Plt Count 330 (150-400) K/uL MPV 8.7 (6.0-10.0) fL Neut % (Auto) 52.4 (45.0-70.0) % Lymph % (Auto) 33.9 (20.0-40.0) % Appling % (Auto) 9.4 (3.0-10.0) % Eos % (Auto) 4.0 (1.0-5.0) % Baso % (Auto) 0.3 (0.0-0.5) % Neut # (Auto) 9.79 H (2.00-7.50) K/uL Lymph # (Auto) 6.32 H (1.50-4.00) K/uL Appling # (Auto) 1.76 H (0.20-0.80) K/uL Eos # (Auto) 0.74 H (0.04-0.40) K/uL Baso # (Auto) 0.06 (0.02-0.10) K/uL Sodium 140 (136-145) mmol/L Potassium 3.4 L (3.5-5.1) mmol/L Chloride 103 (98-107) mmol/L Carbon Dioxide 26.3 (21.0-32.0) mmol/L Anion Gap 14.1 (5.0-15.0) mmol/L BUN 12 (8-26) mg/dL Creatinine 0.90 (0.70-1.30) mg/dL Est Cr Clr Drug Dosing 127.79 mL/min Estimated GFR (MDRD) > 60 (>60) MLS/MIN BUN/Creatinine Ratio 13.3 (6-25) Glucose 140 H (74-100) mg/dL Lactic Acid (0.90-1.70) mmol/L Calcium 8.4 L (8.5-10.1) mg/dL Total Bilirubin 0.3 D (0.0-1.0) mg/dL AST 28 (15-37) U/L ALT 45 (12-78) U/L Alkaline Phosphatase 112 (46-116) U/L Troponin I < 0.017 D (0.000-0.060) ng/mL Total Protein 8.1 (6.4-8.2) g/dL Albumin 3.9 (3.4-5.0) g/dL Globulin 4.2 (2.2-4.2) g/dL Albumin/Globulin Ratio 0.9 (0.8-2.0) 05/30/19 05/30/19 Range/Units 08:20 08:20 WBC 13.7 H D (4.0-11.0) K/uL RBC 4.96 (4.50-6.50) M/uL Hgb 14.8 (13.0-18.0) g/dL Hct 43.9 (40.0-54.0) % MCV 89 (76-96) fL MCH 29.8 (27.0-32.0) pg MCHC 33.7 (31.0-35.0) g/dL RDW 13.9 (11.0-16.0) % Plt Count 273 (150-400) K/uL MPV 8.6 (6.0-10.0) fL Neut % (Auto) 57.0 (45.0-70.0) % Lymph % (Auto) 32.2 (20.0-40.0) % Appling % (Auto) 7.0 (3.0-10.0) % Eos % (Auto) 3.4 (1.0-5.0) % Baso % (Auto) 0.4 (0.0-0.5) % Neut # (Auto) 7.77 H (2.00-7.50) K/uL Lymph # (Auto) 4.39 H (1.50-4.00) K/uL Appling # (Auto) 0.96 H (0.20-0.80) K/uL Eos # (Auto) 0.47 H (0.04-0.40) K/uL Baso # (Auto) 0.06 (0.02-0.10) K/uL Sodium (136-145) mmol/L Potassium (3.5-5.1) mmol/L Chloride (98-107) mmol/L Carbon Dioxide (21.0-32.0) mmol/L Anion Gap (5.0-15.0) mmol/L BUN (8-26) mg/dL Creatinine (0.70-1.30) mg/dL Est Cr Clr Drug Dosing mL/min Estimated GFR (MDRD) (>60) MLS/MIN BUN/Creatinine Ratio (6-25) Glucose (74-100) mg/dL Lactic Acid 1.20 (0.90-1.70) mmol/L Calcium (8.5-10.1) mg/dL Total Bilirubin (0.0-1.0) mg/dL AST (15-37) U/L ALT (12-78) U/L Alkaline Phosphatase (46-116) U/L Troponin I (0.000-0.060) ng/mL Total Protein (6.4-8.2) g/dL Albumin (3.4-5.0) g/dL Globulin (2.2-4.2) g/dL Albumin/Globulin Ratio (0.8-2.0) Med Orders - Current: Current Medications Aspirin (Halfprin) 81 mg PO DAILY [facility] Last Admin: 05/30/19 08:11 Dose: 81 mg Atorvastatin Calcium (Lipitor) 40 mg PO BEDTIME [facility] Carvedilol (Coreg) 3.125 mg PO BIDMEALS [facility] Last Admin: 05/30/19 08:11 Dose: 3.125 mg Clopidogrel Bisulfate (Plavix) 75 mg PO DAILY [facility] Last Admin: 05/30/19 08:12 Dose: 75 mg Gabapentin (Neurontin) 300 mg PO DAILY [facility] Last Admin: 05/30/19 08:10 Dose: 300 mg Gabapentin (Neurontin) 600 mg PO BEDTIME [facility] Last Admin: 05/29/19 22:53 Dose: Not Given Hydrochlorothiazide (Hydrochlorothiazide) 12.5 mg PO DAILY [facility] Last Admin: 05/30/19 08:12 Dose: 12.5 mg Sodium Chloride (Normal Saline) 1,000 mls @ 125 mls/hr IV ASDIRECTED [facility] Last Admin: 05/30/19 05:42 Dose: 125 mls/hr Ketorolac Tromethamine (Toradol) 15 mg IVPUSH Q6H PRN PRN Reason: Pain Stop: 06/04/19 00:31 Lisinopril (Prinivil) 10 mg PO DAILY [facility] Last Admin: 05/30/19 08:12 Dose: 10 mg Ondansetron HCl (Zofran) 4 mg IVPUSH Q4H PRN PRN Reason: Nausea/Vomiting Pantoprazole Sodium (Protonix) 40 mg PO ACBREAKFAST [facility] Last Admin: 05/30/19 08:11 Dose: 40 mg Discontinued Medications Al Hydroxide/Mg Hydroxide (Gi Cocktail) 30 ml PO ONETIME ONE Stop: 05/29/19 21:02 Last Admin: 05/29/19 21:05 Dose: 30 ml Hydromorphone HCl (Dilaudid) 1 mg IVPUSH ONETIME ONE Stop: 05/29/19 20:49 Last Admin: 05/29/19 20:49 Dose: 1 mg Ketorolac Tromethamine (Toradol) 15 mg IVPUSH Q6H [facility] Stop: 06/04/19 00:31 Last Admin: 05/30/19 00:09 Dose: 15 mg Morphine Sulfate (Morphine) 2 mg IVPUSH ONETIME ONE Stop: 05/29/19 20:34 Last Admin: 05/29/19 20:43 Dose: 2 mg Non-Formulary Medication (Pantoprazole [Protonix]) 40 mg PO ACBREAKFAST [facility] Non-Formulary Medication (Aspirin [Aspirin]) 1 tab PO DAILY [facility] Non-Formulary Medication (Atorvastatin Calcium [Atorvastatin Calcium]) 1 tab PO BEDTIME [facility] Non-Formulary Medication (Carvedilol [Carvedilol]) 1 tab PO BID [facility] Non-Formulary Medication (Gabapentin [Neurontin]) 1 cap PO ASDIRECTED [facility] Ondansetron HCl (Zofran) 4 mg IVPUSH ONETIME ONE Stop: 05/29/19 20:34 Last Admin: 05/29/19 20:41 Dose: 4 mg - Exam General: Reports: Alert, Oriented HEENT: Reports: Pupils Equal, Pupils Reactive, EOMI Neck: Reports: Supple Lungs: Reports: Clear to Auscultation, Normal Respiratory Effort Cardiovascular: Reports: Regular Rate, Regular Rhythm GI/Abdominal Exam: Normal Bowel Sounds, Soft, Non-Tender Back Exam: Reports: Normal Inspection Extremities: Normal Inspection
--- NOTE | 2019-05-30 09:16 | CT ---
DATE OF SERVICE: 05/29/19 CLINICAL DATA: epigastric pain - lower anterior chest pain. UNENHANCED ABDOMEN CT: Multislice axial acquisition through the abdomen without IV or oral contrast was performed. Comparison is made to a prior abdomen and pelvic CT dated 09/21/18. The unenhanced liver appears normal. No focal hepatic lesions. The gallbladder appears normal. The spleen appears normal. There is a nodule anterior to the spleen consistent with an accessory spleen. The pancreas appears normal. The right and left adrenals appear normal. The right and left kidneys appear normal. No nephrocalcinosis or nephrolithiasis. No hydronephrosis or hydroureter. The stomach is distended. No distended loops of small bowel. No free air. No free fluid. No adenopathy. No aortic aneurysm. No other significant findings. [id number] [facility]
[2019-05-30] MEDS ORDERED: atorvaSTATin 40 MG Tab PO SCH (20:00)
[2019-05-30] MEDS ORDERED: ATORVASTATIN CALCIUM PO SCH (20:00)
== END 2019-05-30 09:16 | disposition home or self-care (01) ==
LOC: LB.ED 20:12 → UNDOADMIN 21:45 → LB.MS 21:45 → INTOOBSV 21:51 → LB.MS 21:51
PROVIDERS: ADMIT Physician Assistant; ATTEND Physician Assistant
DX: K56.7 Ileus, unspecified (principal); I25.2 Old myocardial infarction; Z79.82 Long term (current) use of aspirin; Z79.02 Long term (current) use of antithrombotics/antiplatelets; Z79.899 Other long term (current) drug therapy
CPT/HCPCS: 36415; 71045; 71250; 74150; 80048; 80053; 83605; 84484; 85025; 93005; 96361; 96374; 96375; 99285; A9270; G0378; J1170; J1885; J2270; J2405; J7030

== ENCOUNTER 2019-06-03 11:16 | Emergency (ER) | payer MEDICAID ==
[2019-06-03 11:47] VITALS: BP 120/78; PULSE 85
[2019-06-03] MEDS ORDERED: traMADol 50 MG Tab ONE (12:00)
[2019-06-03] MEDS: traMADol 50 MG Tab PO ONE (12:34)
[2019-06-03] MEDS: traMADol 50 MG Tab ONE ×2 (12:40→13:36)
--- NOTE | 2019-06-03 14:17 | ER ---
REASON FOR EMERGENCY ROOM VISIT: Right-sided chest pain. HISTORY: This 43-year-old man began to experience a dull achy pleuritic chest pain in the right upper subclavian area. It increased with deep breath. He described it as a dull ache. This started yesterday morning. Beginning today, he noted that the pain traveled down his right lateral chest wall from his axilla all the way down to the costal margin. Again, this was somewhat sharper and more shooting in terms of its characteristics. It was increased with deep breathing. Because of this pain, he feels somewhat short of breath. The pain has waxed and waned since the onset. He does admit to smoking, but he smokes less than 1 pack per day. He denies any fever or cough. He has not had any rashes. He denies any GI symptoms now, but he was hospitalized 5 days ago and observed overnight for upper abdominal discomfort which was accompanied by some right-sided lower chest pain and vomiting. This resolved overnight while he was in the hospital. He did have a CT scan of his chest and abdomen and these were normal. He did have significant leukocytosis with a white count of 18,900 at that time. He remained afebrile and he was discharged the following day, with having had his symptoms resolve. Since that for the subsequent 2 days, he felt completely normal until the onset of his current symptoms which he states are different from those he experienced earlier last week. He denies any headaches. He denies any visual symptoms. He does not have any arthralgias. He denies any anterior chest pain or radiation down in either arm. He has no history of hemoptysis. He has not had any constipation or diarrhea. He denies any urinary symptoms including hematuria. PAST MEDICAL HISTORY: 1. Myocardial infarction in October of this year. He received 3 coronary artery stents. 2. History of multiple allergies including allergic rhinitis, contact dermatitis , and poison manuel dermatitis. 3. Trigeminal neuralgia. 4. History of what sounds like peptic ulcer disease. MEDICATIONS: Reviewed. Please see EMR. They include the following: Gabapentin, Plavix, carvedilol, aspirin, atorvastatin, pantoprazole, lisinopril, and hydrochlorothiazide. ALLERGIES: NONE TO MEDICATIONS. REVIEW OF SYSTEMS: Pertinent positives and negatives as listed above in the HPI. PHYSICAL EXAMINATION: GENERAL: He is a pleasant man, in no acute distress. He is not diaphoretic. VITAL SIGNS: He is afebrile, heart rate is 85, blood pressure 120/78, respirations 18, O2 saturations 98% on room air. HEENT: No scleral icterus or conjunctivitis is noted. Oropharynx is normal. NECK: Supple. No adenopathy. No bruits. No thyromegaly. CHEST: Clear to auscultation with no wheezes, rhonchi, or rales. No pleuritic rub could be noted. Good air exchange is noted bilaterally. CARDIAC: Regular rate without murmur or rub. ABDOMEN: Normal bowel sounds. Soft and nondistended. No tenderness. No percussion tenderness. No rebound or guarding. EXTREMITIES: Normal pulses. No edema. No deformities. LABORATORY DATA: A CBC was repeated and his white count is now 13.9 which has decreased from last week's white count. We went ahead and got a D-dimer which was 263 ( within normal limits). The CMP is otherwise within normal limits. A troponin was less than 0.017. A chest x-ray was obtained, and I do not see any acute process. There is no thickening. No evidence of pneumothorax. I could not identify any bony lesions. No cardiomegaly. IMPRESSION: Pleuritis With his having had a normal CT angiogram, CT scan of his chest and abdomen last week combined with the above-mentioned clinical and laboratory findings including a normal D-dimer and normal troponin and a normal EKG, I am at a loss to understand his symptoms. Two possibilities exist. One would be that he has pleuritis which could be viral in etiology, that could explain the white count and his pleuritic pain and the negative findings thus far. The other possibility which seems less likely would be biliary tract disease, even though a CT scan is not the optimal test for gallstones, he had a normal gallbladder on CT scanning. One could consider an ultrasound to exclude that possibility that could account for some of his symptoms. If he does indeed have pleuritis, this should resolve in time. It is usually viral in nature without any other identifiable etiology. I gave him a prescription for tramadol 50 mg, dispensed #4, and suggested ibuprofen round the clock, but he states that because of his history of ulcer disease, he cannot take this even though he is on small amounts of aspirin. As an alternative, I suggested Tylenol and rest and to follow up with his provider Dr. Kline next week. He understands and agrees. All questions were answered. NANCY /[id number] ACACIA
--- NOTE | 2019-06-03 16:08 | CR ---
DATE OF SERVICE: 05/04/19 CLINICAL DATA: chest pain PA AND LATERAL CHEST: Comparison is made to a prior exam dated 05/29/19. The heart size is normal. The lungs are clear. No evidence of acute intrathoracic disease. [id number] [facility]
== END 2019-06-03 13:32 | disposition home or self-care (01) ==
LOC: LB.ED 11:16
DX: R09.1 Pleurisy (principal); I25.2 Old myocardial infarction; F17.210 Nicotine dependence, cigarettes, uncomplicated; Z95.5 Presence of coronary angioplasty implant and graft; Z79.82 Long term (current) use of aspirin; Z79.899 Other long term (current) drug therapy
CPT/HCPCS: 36415; 71046; 80053; 84484; 85025; 85379; 93005; 99285; A9270

== ENCOUNTER 2020-04-06 14:10 | Emergency (ER) | payer MEDICAID ==
[2020-04-06 14:22] VITALS: BP 119/79
[2020-04-06] MEDS ORDERED: Sulfamethoxazole/Trimethoprim 800-160 MG Tab ONE (14:30)
--- NOTE | 2020-04-06 14:58 | EDM.PDOC ---
ED HPI GENERAL MEDICAL PROBLEM - General Chief Complaint: General Stated Complaint: FINGER INFECTION Time Seen by Provider: 04/06/20 14:50 Source of Information: Reports: Patient - History of Present Illness INITIAL COMMENTS - FREE TEXT/NARRATIVE: 1 week of "pimple" on right proximal index finger, had drainage and increased pain after hitting the area today. No pain in the joint, CMS+, denies fever, n /v/d. Right Finger-Index Pain Score (Numeric/FACES): 4 - Related Data Allergies Allergy/AdvReac Type Severity Reaction Status Date / Time No Known Allergies Allergy Verified 04/06/20 14:20 Home Meds: Home Meds Aspirin 1 tab PO DAILY 05/29/19 [History] Clopidogrel Bisulfate [Clopidogrel] 1 tab PO DAILY 05/29/19 [History] Gabapentin [Neurontin] 1 cap PO ASDIRECTED 05/29/19 [History] atorvaSTATin Calcium [Atorvastatin Calcium] 40 mg PO BEDTIME 05/29/19 [History] carvediloL [Carvedilol] 1 tab PO BID 05/29/19 [History] Nitroglycerin [Nitrostat] 0.4 mg SL ASDIRECTED PRN 11/13/19 [History] amLODIPine Besylate [Amlodipine Besylate] 5 mg PO DAILY 11/13/19 [History] Past Medical History - Past Health History Medical/Surgical History: Denies Medical/Surgical History Cardiovascular History: Reports: CAD, High Cholesterol, Hypertension, [place], Stents Other Cardiovascular History: has been on HTN meds but stopped taking meds states he has lost 40 pounds and hasn't had to take meds anymore Gastrointestinal History: Reports: GERD, Other (See Below) Other Gastrointestinal History: ulcers Other Musculoskeletal History: Bilateral shoulder pain Neurological History: Reports: Neuropathy, Peripheral Other Neuro History: 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 - Past Surgical History Musculoskeletal Surgical History: Reports: Amputation, Other (See Below) Other Musculoskeletal Surgeries/Procedures:: Left ring finger at [facility]IP. Social & Family History - Family History Family Medical History: Noncontributory - Caffeine Use Caffeine Use: Reports: Coffee - Recreational Drug Use Recreational Drug Use: No ED ROS GENERAL - Review of Systems Review Of Systems: See Below Constitutional: Reports: No Symptoms HEENT: Reports: No Symptoms Respiratory: Reports: No Symptoms Cardiovascular: Reports: No Symptoms Endocrine: Reports: No Symptoms GI/Abdominal: Reports: No Symptoms : Reports: No Symptoms Musculoskeletal: Reports: No Symptoms Skin: Reports: Wound Neurological: Reports: No Symptoms Psychiatric: Reports: No Symptoms Hematologic/Lymphatic: Reports: No Symptoms ED EXAM, GENERAL - Physical Exam Exam: See Below General Appearance: Alert, No Apparent Distress Nose: Normal Inspection Throat/Mouth: Normal Inspection Head: Atraumatic Neck: Normal Inspection Respiratory/Chest: No Respiratory Distress GI/Abdominal: Normal Bowel Sounds Extremities: Normal Inspection, Normal Capillary Refill Neurological: Alert, Oriented Skin Exam: Warm, Dry, Wound/Incision Course - Vital Signs Last Recorded V/S: Last Vital Signs Temp 97.7 F 04/06/20 14:21 Pulse Resp 18 04/06/20 14:21 BP 119/79 04/06/20 14:21 Pulse Ox 98 04/06/20 14:21 Departure - Departure Time of Disposition: 14:57 Disposition: Home, Self-Care 01 Clinical Impression: Cellulitis - Discharge Information *PRESCRIPTION DRUG MONITORING PROGRAM REVIEWED*: Not Applicable *COPY OF PRESCRIPTION DRUG MONITORING REPORT IN PATIENT DAMIEN: Not Applicable Instructions: Cellulitis, Adult Referrals: PCP,None [Primary Care Provider] - Additional Instructions: take the bactrim twice daily for 10 days. Watch for increased signs of infection. Return for any increased or new concerning symptoms. Follow up with your PMD. Sepsis Event Note (ED) - Evaluation Sepsis Screening Result: No Definite Risk - Focused Exam Vital Signs: Vital Signs Temp Resp BP Pulse Ox 04/06/20 14:21 97.7 F 18 119/79 98
== END 2020-04-06 15:01 | disposition home or self-care (01) ==
LOC: LB.ED 14:10
DX: L03.011 Cellulitis of right finger (principal); I10 Essential (primary) hypertension; I25.10 Atherosclerotic heart disease of native coronary artery without angina pectoris; I25.2 Old myocardial infarction; Z79.82 Long term (current) use of aspirin; Z79.02 Long term (current) use of antithrombotics/antiplatelets; Z79.899 Other long term (current) drug therapy
CPT/HCPCS: 99283; A9270

== ENCOUNTER 2020-06-29 20:47 | Emergency (ER) | payer MEDICAID ==
[2020-06-29 21:07] VITALS: BP 131/92; PULSE 75
--- NOTE | 2020-06-29 22:05 | EDM.PDOC ---
ED HPI GENERAL MEDICAL PROBLEM - General Chief Complaint: Lower Extremity Injury/Pain Stated Complaint: LLE PAIN Time Seen by Provider: 06/29/20 21:20 Source of Information: Reports: Patient History Limitations: Reports: No Limitations - History of Present Illness INITIAL COMMENTS - FREE TEXT/NARRATIVE: Patient is a 45 y/o male who presents for left mid liz pain x 1.5 weeks. He hit it on his friend's deck and has had pain ever since. No difficulty walking or bearing weight. No redness. No drainage. Up-to-date on tetanus immunization. Left Lower Anterior Leg Pain Score (Numeric/FACES): 6 - Related Data Allergies Allergy/AdvReac Type Severity Reaction Status Date / Time No Known Allergies Allergy Verified 06/29/20 21:02 Home Meds: Home Meds Aspirin 1 tab PO DAILY 05/29/19 [History] Clopidogrel Bisulfate [Clopidogrel] 1 tab PO DAILY 05/29/19 [History] Gabapentin [Neurontin] 1 cap PO ASDIRECTED 05/29/19 [History] atorvaSTATin Calcium [Atorvastatin Calcium] 40 mg PO BEDTIME 05/29/19 [History] carvediloL [Carvedilol] 1 tab PO BID 05/29/19 [History] Nitroglycerin [Nitrostat] 0.4 mg SL ASDIRECTED PRN 11/13/19 [History] amLODIPine Besylate [Amlodipine Besylate] 5 mg PO DAILY 11/13/19 [History] Past Medical History - Past Health History Medical/Surgical History: Denies Medical/Surgical History Cardiovascular History: Reports: CAD, High Cholesterol, Hypertension, [place], Stents Other Cardiovascular History: has been on HTN meds but stopped taking meds states he has lost 40 pounds and hasn't had to take meds anymore Respiratory History: Reports: Other (See Below) Other Respiratory History: Current active smoker Gastrointestinal History: Reports: GERD, Other (See Below) Other Gastrointestinal History: ulcers Other Musculoskeletal History: Bilateral shoulder pain Neurological History: Reports: Neuropathy, Peripheral Other Neuro History: 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 - Past Surgical History Musculoskeletal Surgical History: Reports: Amputation, Other (See Below) Other Musculoskeletal Surgeries/Procedures:: Left ring finger at [facility]. Social & Family History - Family History Family Medical History: No Pertinent Family History - Tobacco Use Tobacco Use Status *Q: Current Every Day Tobacco User Years of Tobacco use: 30 Packs/Tins Daily: 0.5 Used Tobacco, but Quit: No - Caffeine Use Caffeine Use: Reports: Coffee - Recreational Drug Use Recreational Drug Use: No Review of Systems - Review of Systems Review Of Systems: See Below Constitutional: Reports: No Symptoms Musculoskeletal: Reports: Leg Pain Skin: Reports: Wound Neurological: Reports: No Symptoms ED EXAM, GENERAL - Physical Exam Exam: See Below Exam Limited By: No Limitations General Appearance: Alert, No Apparent Distress Head: Atraumatic, Normocephalic Respiratory/Chest: No Respiratory Distress Extremities: Normal Range of Motion, No Pedal Edema, Normal Capillary Refill, Leg Pain, Other (left anterior mid-liz swelling and tenderness; no deforming; no contusion; well-healed scab; no erythema; no drainage; no induration) Neurological: Alert, Oriented, CN II-XII Intact, Normal Cognition, Normal Gait, No Motor/Sensory Deficits Skin Exam: Warm, Dry, Intact, Normal Color, No Rash Course - Vital Signs Text/Narrative:: XR negative for fracture. Patient took motrin at home. Last Recorded V/S: Last Vital Signs Temp 35.9 C L 06/29/20 20:55 Pulse 75 06/29/20 20:55 Resp 20 06/29/20 20:55 BP 131/92 H 06/29/20 20:55 Pulse Ox 99 06/29/20 20:55 - Orders/Labs/Meds Orders: Active Orders 24 hr Category Date Time Status Tibia Fibula Lt [CR] Stat Exams 06/29/20 21:31 Taken Departure - Departure Time of Disposition: 22:00 Disposition: Home, Self-Care 01 Condition: Good Clinical Impression: Leg injury Qualifiers: Encounter type: initial encounter Laterality: left Qualified Code(s): S89.92XA - Unspecified injury of left lower leg, initial encounter - Discharge Information *PRESCRIPTION DRUG MONITORING PROGRAM REVIEWED*: Not Applicable *COPY OF PRESCRIPTION DRUG MONITORING REPORT IN PATIENT DAMIEN: Not Applicable Instructions: RICE Therapy for Routine Care of Injuries, [id number] Forms: ED Department Discharge Additional Instructions: May apply cold pack to affected area to help decrease pain and swelling. Elevate affected leg to help with pain and swelling as well. May take 800mg Ibuprofen every 8 hours as needed for pain, and alternate with 650mg Tylenol every 8 hours as well. Drink plenty of fluids and get plenty of rest. Diet and activity as tolerated. Call with any questions. Sepsis Event Note (ED) - Evaluation Sepsis Screening Result: No Definite Risk - Focused Exam Vital Signs: Vital Signs Temp Pulse Resp BP Pulse Ox 06/29/20 20:55 35.9 C L 75 20 131/92 H 99 - My Orders Last 24 Hours: My Active Orders 06/29/20 21:31 Tibia Fibula Lt [CR] Stat - Assessment/Plan Last 24 Hours: My Active Orders 06/29/20 21:31 Tibia Fibula Lt [CR] Stat
--- NOTE | 2020-06-30 09:50 | CR ---
Date of Service: 06/29/20 Clinical Data: left liz pain LEFT LOWER LEG: No priors. No acute fracture or dislocation. No lytic or blastic bone lesions. There is mild soft tissue swelling anterior the mid and proximal tibia. [id number] [facility]
== END 2020-06-29 22:00 | disposition home or self-care (01) ==
LOC: LB.ED 20:47
DX: S89.92XA Unspecified injury of left lower leg, initial encounter (principal); I10 Essential (primary) hypertension; I25.2 Old myocardial infarction; E78.00 Pure hypercholesterolemia, unspecified; I25.10 Atherosclerotic heart disease of native coronary artery without angina pectoris; F17.210 Nicotine dependence, cigarettes, uncomplicated; Z95.5 Presence of coronary angioplasty implant and graft; Z79.82 Long term (current) use of aspirin; Z79.02 Long term (current) use of antithrombotics/antiplatelets; Z79.899 Other long term (current) drug therapy; W22.8XXA Striking against or struck by other objects, initial encounter
CPT/HCPCS: 73590-LT; 99283-25

== ENCOUNTER 2021-08-24 03:48 | Emergency (ER) | payer MEDICAID ==
[2021-08-24 04:16] VITALS: BP 145/99; PULSE 72
== END 2021-08-24 05:09 | disposition home or self-care (01) ==
LOC: LB.ED 03:48
DX: J02.9 Acute pharyngitis, unspecified (principal); J30.9 Allergic rhinitis, unspecified; I10 Essential (primary) hypertension; E78.00 Pure hypercholesterolemia, unspecified; I25.2 Old myocardial infarction; K21.9 Gastro-esophageal reflux disease without esophagitis; Z79.82 Long term (current) use of aspirin; Z79.899 Other long term (current) drug therapy
CPT/HCPCS: 87430; 87804; 87804-59; 99283

== ENCOUNTER 2022-05-07 16:56 | Emergency (ER) | payer MEDICAID ==
[2022-05-07] MEDS ORDERED: Acetaminophen/HYDROcodone 325-5 MG Tab PO ONE (17:16)
[2022-05-07 17:51] LABS: ESTIMATED GFR 116 mL/min (>60)
[2022-05-07] MEDS ORDERED: Acetaminophen/HYDROcodone 325-5 MG Tab ONE (18:00)
[2022-05-07 18:05] VITALS: BP 135/94; PULSE 85
== END 2022-05-07 18:55 | disposition home or self-care (01) ==
LOC: LB.ED 16:56
DX: S70.01XA Contusion of right hip, initial encounter (principal); I25.10 Atherosclerotic heart disease of native coronary artery without angina pectoris; I10 Essential (primary) hypertension; F17.210 Nicotine dependence, cigarettes, uncomplicated; Z79.82 Long term (current) use of aspirin; Z79.899 Other long term (current) drug therapy; W10.9XXA Fall (on) (from) unspecified stairs and steps, initial encounter
CPT/HCPCS: 36415; 72192; 80053; 85025; 85610; 99282; 99284; A9270

== ENCOUNTER 2025-03-21 13:06 | Inpatient (IN) | payer MEDICAID ==
[2025-03-21 13:18] LABS: BASOPHILS ABSOLUTE AUTO 0.03 K/uL (0.02-0.10); BASOPHILS PERCENT AUTO 0.2 % (0.0-0.5); EOSINOPHILS ABSOLUTE AUTO 0.27 K/uL (0.04-0.40); EOSINOPHILS PERCENT AUTO 1.9 % (1.0-5.0); LYMPHOCYTES ABSOLUTE AUTO 4.77 K/uL (1.50-4.00); LYMPHOCYTES PERCENT AUTO 34.4 % (20.0-40.0); MEAN PLATELET VOLUME 8.6 fL (6.0-10.0); MONOCYTES ABSOLUTE AUTO 0.72 K/uL (0.20-0.80); MONOCYTES PERCENT AUTO 5.2 % (3.0-10.0); NEUTROPHILS ABSOLUTE AUTO 8.07 K/uL (2.00-7.50); NEUTROPHILS PERCENT AUTO 58.3 % (45.0-70.0); PLATELET COUNT,PLT 401 K/uL (150-400); RED BLOOD CELL COUNT 3.33 M/uL (4.50-6.50); RED CELL DISTRIBUTION WIDTH 17.6 % (11.0-16.0); WHITE BLOOD CELL COUNT,WBC 13.9 K/uL (4.0-11.0)
[2025-03-21 13:38] LABS: INR 1.1 (1.0-3.5)
[2025-03-21 13:43] LABS: A/G RATIO 0.6 (0.8-2.0); ALANINE AMINOTRANSFERASE,ALT 11.0 U/L (12-78); ASPARTATE AMNIOTRANSFERASE,AST 12.0 U/L (15-37); BILIRUBIN TOTAL 0.2 mg/dL (0.0-1.0); BLOOD UREA NITROGEN,BUN 40.0 mg/dL (8-26); CARBON DIOXIDE,CO2 26.1 mmol/L (21.0-32.0); CHLORIDE,CL 106.0 mmol/L (98-107); CREATININE 1.05 mg/dL (0.70-1.30); EST CRCL DRUG DOSING (CG) 83.72 mL/min; ESTIMATED GFR 88.0 mL/min (>60); GLUCOSE RANDOM 210.0 mg/dL (74-100); POTASSIUM,K 4.4 mmol/L (3.5-5.1); PROTEIN TOTAL,TP 6.4 g/dL (6.4-8.2); SODIUM,NA 141.0 mmol/L (136-145)
[2025-03-21] MEDS: Ondansetron 4 MG/2 ML SDV IVPUSH ONE (14:06)
[2025-03-21 14:27] LABS: APPEARANCE,URINE CLEAR (CLEAR); GLUCOSE,URINE NEGATIVE (NEGATIVE); OCCULT BLOOD,URINE NEGATIVE (NEGATIVE)
[2025-03-21 14:29] LABS: AMPHETAMINES SCREEN, URINE NEGATIVE (NEGATIVE); METHADONE SCREEN, URINE NEGATIVE (NEGATIVE); METHAMPHETAMINES SCREEN, URINE NEGATIVE (NEGATIVE); OXYCODONE SCREEN,URINE NEGATIVE (NEGATIVE); THC SCREEN,URINE 50 NG/ML NEGATIVE (NEGATIVE)
[2025-03-21] MEDS: Calcium Gluconate 10% 1 GM/10 ML SDV IVPUSH ONE (16:41)
[2025-03-21 18:18] LABS: A/G RATIO 0.7 (0.8-2.0); ALANINE AMINOTRANSFERASE,ALT 10.0 U/L (12-78); ASPARTATE AMNIOTRANSFERASE,AST 15.0 U/L (15-37); BILIRUBIN TOTAL 0.2 mg/dL (0.0-1.0); BLOOD UREA NITROGEN,BUN 38.0 mg/dL (8-26); CARBON DIOXIDE,CO2 23.7 mmol/L (21.0-32.0); CHLORIDE,CL 111.0 mmol/L (98-107); CREATININE 0.66 mg/dL (0.70-1.30); EST CRCL DRUG DOSING (CG) 133.2 mL/min; ESTIMATED GFR 116.0 mL/min (>60); GLUCOSE RANDOM 87.0 mg/dL (74-100); POTASSIUM,K 4.8 mmol/L (3.5-5.1); PROTEIN TOTAL,TP 5.6 g/dL (6.4-8.2); SODIUM,NA 143.0 mmol/L (136-145)
[2025-03-21] MEDS: Octreotide Depot 20 MG Kit for Injection IM ONE (22:42)
[2025-03-21] MEDS: Pantoprazole 40 MG Delayed-Release Granules 1 Packet PO SCH (22:42)
[2025-03-22 08:11] LABS: BASOPHILS ABSOLUTE AUTO 0.05 K/uL (0.02-0.10); BASOPHILS PERCENT AUTO 0.4 % (0.0-0.5); EOSINOPHILS ABSOLUTE AUTO 0.41 K/uL (0.04-0.40); EOSINOPHILS PERCENT AUTO 2.9 % (1.0-5.0); LYMPHOCYTES ABSOLUTE AUTO 4.09 K/uL (1.50-4.00); LYMPHOCYTES PERCENT AUTO 29.0 % (20.0-40.0); MEAN PLATELET VOLUME 8.7 fL (6.0-10.0); MONOCYTES ABSOLUTE AUTO 0.92 K/uL (0.20-0.80); MONOCYTES PERCENT AUTO 6.5 % (3.0-10.0); NEUTROPHILS ABSOLUTE AUTO 8.63 K/uL (2.00-7.50); NEUTROPHILS PERCENT AUTO 61.2 % (45.0-70.0); PLATELET COUNT,PLT 247 K/uL (150-400); RED BLOOD CELL COUNT 2.93 M/uL (4.50-6.50); RED CELL DISTRIBUTION WIDTH 17.1 % (11.0-16.0); WHITE BLOOD CELL COUNT,WBC 14.1 K/uL (4.0-11.0)
[2025-03-22 09:18] LABS: A/G RATIO 0.7 (0.8-2.0); ALANINE AMINOTRANSFERASE,ALT 10.0 U/L (12-78); ASPARTATE AMNIOTRANSFERASE,AST 13.0 U/L (15-37); BILIRUBIN TOTAL 0.2 mg/dL (0.0-1.0); BLOOD UREA NITROGEN,BUN 27.0 mg/dL (8-26); CARBON DIOXIDE,CO2 27.6 mmol/L (21.0-32.0); CHLORIDE,CL 109.0 mmol/L (98-107); GLUCOSE RANDOM 113.0 mg/dL (74-100); POTASSIUM,K 3.9 mmol/L (3.5-5.1); PROTEIN TOTAL,TP 5.6 g/dL (6.4-8.2); SODIUM,NA 139.0 mmol/L (136-145)
[2025-03-22 10:24] LABS: CREATININE 0.7 mg/dL (0.70-1.30); ESTIMATED GFR 114.0 mL/min (>60)
[2025-03-22 10:37] LABS: EST CRCL DRUG DOSING (CG) 125.59 mL/min
[2025-03-22 13:16] VITALS: BP 126/66; PULSE 68
== END 2025-03-22 14:34 | DRG 379 ==
LOC: LB.ED 13:06 → LB.MS 18:45 → UNDOADMIN 18:45 → LB.MS 19:40 → MERGE 19:40
PROVIDERS: ADMIT Surgery; ATTEND Emergency Medicine
PROC: 30233K1 Transfusion of Nonautologous Frozen Plasma into Peripheral Vein, Percutaneous Approach (ICD-10-PCS; principal; 2025-03-21)
PROC: 30233N1 Transfusion of Nonautologous Red Blood Cells into Peripheral Vein, Percutaneous Approach (ICD-10-PCS; 2025-03-21)
DX: K92.2 Gastrointestinal hemorrhage, unspecified (principal); I10 Essential (primary) hypertension; E78.00 Pure hypercholesterolemia, unspecified; I95.9 Hypotension, unspecified; S00.03XA Contusion of scalp, initial encounter; X58.XXXA Exposure to other specified factors, initial encounter; I25.2 Old myocardial infarction; Z79.82 Long term (current) use of aspirin; Z79.899 Other long term (current) drug therapy; Z79.02 Long term (current) use of antithrombotics/antiplatelets
CPT/HCPCS: 36415; 36430; 70450; 71045; 80053; 80307; 81003; 85014; 85018; 85025; 85610; 86850; 86900; 86901; 86920; 86922; 99223; 99238; A9270-GY; J0612; J2405; J2470; J7030; P9016; P9017